=== PATIENT | male | born 2000 | race Caucasian/White ===

== ENCOUNTER 2022-08-28 22:20 | Emergency (ER) | payer BC ==
[~2022-08-28] VITALS: Ht 172.7 cm; Wt 70.2 kg
[2022-08-28 22:21] VITALS: BP 136/81
[2022-08-28] MEDS ORDERED: LIDOCAINE 1% MDV 20ML VIAL SC ONE (23:55)
[2022-08-29] MEDS ORDERED: BOOSTRIX/ADACEL VACCINE (DIPHTH/PERTUSS/ACELL/TETANUS) 0.5ML SYR IM.IMMUN ONE
[2022-08-29] MEDS ORDERED: NEOSPORIN OINT 0.9 GM PKT TOP ONE
== END 2022-08-29 01:22 | disposition home or self-care (01) ==
LOC: M ED 22:20
DX: S61.411A Laceration without foreign body of right hand, initial encounter (principal); W26.8XXA Contact with other sharp object(s), not elsewhere classified, initial encounter; Y99.0 Civilian activity done for income or pay; Z23 Encounter for immunization